=== PATIENT | female | born 1955 | race African-American/Black ===

== ENCOUNTER → 2016-12-25 | Outpatient (CLI) | payer BC ==
[~2016-12-25] MED LIST: AUGMENTIN 875875 MG PO; HYDROCHLOROTHIA25 M2 PO; HYDROCODON-ACE1 EAC7 PO; LISINOPRIL20 MG PO; NEURONTIN 300300 M1 PO; ZOCOR20 MG PO
== END ==
LOC: RAD 14:47
DX: Z12.31 Encounter for screening mammogram for malignant neoplasm of breast (principal); N63 Unspecified lump in breast; R05 Cough

== ENCOUNTER → 2016-12-29 | Outpatient (CLI) | payer BC | LOC: RAD 09:07 | DX: N63 Unspecified lump in breast (principal) ==

== ENCOUNTER 2018-04-13 00:17 | Inpatient (IN) | payer BC ==
[~2018-04-13] VITALS: Ht 167.6 cm; Wt 111.0 kg
[2018-04-13] VITALS (16 sets, daily range): BP systolic 89–154; BP diastolic 52–94
--- NOTE | ~2018-04-13 | EKG ---
[address] [place] [address] ELECTROCARDIOGRAM REPORT Name: ESPERANZASASHA Room #: 204-P ADM IN M.R.#: [id number] Admission: 04/13/18 Attend Phys: Chip Mccain MD Discharge: Date of : 55 Report #: [id number] THIS REPORT FOR: //name// [facility] Test Date: 2018-04-13 Test Time: 05:11:59 Pat Name: SASHA MATA Department: Room: 204 Gender: F Overnight Babysitter: BRITNI : 1955 Requested By: Margaret Rodriguez Order Number: [id number] MD: Jordi Woods Measurements Intervals [place] Rate: 101 P: MA: QRS: -2 QRSD: 114 T: 85 QT: 369 QTc: 479 Interpretive Statements Atrial fibrillation Ventricular premature complex Borderline repolarization abnormality Baseline wander in lead(s) V2 No previous ECG available for comparison Electronically Signed On 04-15-2018 8:22:50 CDT by Jordi Woods [email or web address] <ELECTRONICALLY SIGNED> By: Jordi Woods MD, [facility] 04/15/18 0822 0511 05 Jordi Woods MD, FACC /EPI
--- NOTE | ~2018-04-13 | 2DMMODE ---
[facility] [address] [place] [address] 2 D/M-MODE ECHOCARDIOGRAM Name: SASHA MATA Room #: 204-P ADM IN ..#: [id number] Admission: 04/13/18 Attend Phys: Agus Monk MD Discharge: Date of : 55 Date of Service: 04/13/181831 Report #: [id number] THIS REPORT FOR: //name// APPROVED REPORT Study performed: 04/13/2018 09:26:52 EXAM: Comprehensive 2D, Doppler, and color-flow Echocardiogram Patient Location: Bedside Room #: 204 Status: routine BSA: 2.16 HR: 72 bpm BP: 112/83 mmHg Rhythm: Atrial Fibrillation Other Information Study Quality: Adequate Technically limited study due to body habitus. Risk Factors: Cardiac Risk Factors: Hyperlipidemia, HTN Indications Congestive Heart Failure Murmur Atrial Fibrillation Dyspnea 2D Dimensions RVDd: 18.67 mm LVEF(%): 60.00 (>50%) IVSd: 10.54 (7-11mm) LVOT Diam: 19.00 (18-24mm) LVDd: 67.37 mm PWd: 11.06 (7-11mm) Ascending Ao: 27.88 (22-36mm) LVDs: 51.35 (25-40mm) Aortic Root: 29.50 mm LV Single Plane 4CH: 64.90 % LV Single Plane 2CH: 60.38 % Dupont's LVEF: 62.64 % Biplane EF: 62.8 % Volumes Left Atrial Volume (Systole) Single Plane 4CH: 111.86 mL Single Plane 2CH: 100.42 mL LA ESV Index: 56.00 mL/m2 [facility] [address] [place] [address] 2 D/M-MODE ECHOCARDIOGRAM Name: SASHA MATA Room #: 204-P [facility] IN [facility]#: [id number] Admission: 04/13/18 Attend Phys: Agus Monk MD Discharge: Date of : 55 Date of Service: 04/13/18 1832 Report #: [id number] Aortic Valve AoV Peak Abram.: 1.27 m/s AO Peak Gr.: 6.45 mmHg LVOT Max P.50 mmHg LVOT Max V: 1.06 m/s [place] Vmax: 2.25 cm2 Pulmonary Valve PV Peak Abram.: 0.95 m/s PV Peak Gr.: 3.64 mmHg Tricuspid Valve TR Peak Abram.: 2.95 m/s RAP Estimate: 10.00 mmHg TR Peak Gr.: 35.05 mmHg PA Pressure: 45.00 mmHg Left Ventricle Left ventricle is severely dilated. Borderline concentric left ventricular hypertrophy. The left ventricular systolic function is normal. The left ventricular ejection fraction is within the normal range. LVEF is 60-65%. This study is not technically sufficient to allow evaluation of the LV diastolic function due to atrial fibrillation. Right Ventricle Right ventricle is at the upper limits of normal. The right ventricular systolic function is normal. Atria Left atrium is severely dilated. Right atrium is moderately dilated. Aortic Valve The Aortic valve is sclerotic. Trace aortic regurgitation. Mitral Valve There is mitral annular calcification. Severe mitral regurgitation. No evidence of mitral valve stenosis. Tricuspid Valve The tricuspid valve is normal in structure. Moderate tricuspid regurgitation. Pulmonary artery pressure is 45 mmHg. Pulmonic Valve The pulmonary valve is normal in structure. Mild pulmonic regurgitation. Great Vessels [facility] [address] [place] [address] 2 D/M-MODE ECHOCARDIOGRAM Name: ESPERANZASASHA Room #: 204-P ADM IN M.R.#: [id number] Admission: 04/13/18 Attend Phys: Agus Monk MD Discharge: Date of : 55 Date of Service: 04/13/18 1832 Report #: [id number] The aortic root is normal in size. IVC is mildly dilated and collapses <50% with inspiration. Pulmonary artery is dilated at 3.0 cm. Pericardium There is no pericardial effusion. <Conclusion> Left ventricle is severely dilated. LVEF is 60-65%. Right ventricle is at the upper limits of normal. The right ventricular systolic function is normal. Left atrium is severely dilated. Right atrium is moderately dilated. The Aortic valve is sclerotic. Trace aortic regurgitation. There is mitral annular calcification. Severe mitral regurgitation. The tricuspid valve is normal in structure. Moderate tricuspid regurgitation. Pulmonary artery pressure is 45 mmHg. The pulmonary valve is normal in structure. Mild pulmonic regurgitation. Pulmonary artery is dilated at 3.0 cm. There is no pericardial effusion. <ELECTRONICALLY SIGNED> By: Matias Samuels MD 04/13/181831 31 31 Matias Samuels MD /INF
--- NOTE | ~2018-04-13 | EKG ---
[address] [address] ELECTROCARDIOGRAM REPORT Name: ESPERANZASASHA Room #: 204-P ADM IN M.R.#: [id number] Admission: 04/13/18 Attend Phys: Chip Mccain MD Discharge: Date of : 55 Report #: [id number] THIS REPORT FOR: //name// [facility] ED Test Date: 2018-04-13 Test Time: 00:28:26 Pat Name: SASHA MATA Department: Room: 204 P Gender: F Insurance Inspector: OLLIE : 1955 Requested By: Agus Monk Order Number: [id number] MD: Jordi Woods Measurements Intervals [place] Rate: 112 P: LA: QRS: -19 QRSD: 116 T: 84 QT: 353 QTc: 482 Interpretive Statements Atrial fibrillation Premature ventricular complexes Minimal ST depression, lateral leads No previous ECG available for comparison Electronically Signed On 04-15-2018 8:21:14 CDT by Jordi Woods [email or web address] <ELECTRONICALLY SIGNED> By: Jordi Woods MD, [facility] 04/15/18 0821 0028 Jordi Woods MD, FACC /EPI
[2018-04-13 00:48] LABS: ABSOLUTE NEUTROPHILS 5.8 thou/uL (1.4-8.2); EOSINOPHILS 2.8 % (0.0-3.0); HEMOGLOBIN 12.2 gm/dL (12.0-15.0); LYMPHOCYTES 28.5 % (24.0-44.0); MCH 29.4 pg (26.0-34.0); MCHC 33.1 g/dL (28.0-37.0); MCV 88.8 fL (80.0-100.0); MONOCYTES 9.5 % (1.0-8.0); POLYS 58.2 % (36.0-66.0); RBC 4.17 mil/uL (4.20-5.00); RDW 14.5 % (10.5-14.5); WBC 9.9 thou/uL (4.0-11.0)
[2018-04-13 00:55] LABS: ANION GAP 6 mmol/L (7-16); BUN 24 mg/dL (7-18); CALCIUM 9.4 mg/dL (8.5-10.1); CHLORIDE 106 mmol/L (98-107); CO2 27 mmol/L (21-32); CREATININE 1.2 mg/dL (0.6-1.0); GLUCOSE 158 mg/dL (74-106); POTASSIUM 3.1 mmol/L (3.5-5.1); SODIUM 139 mmol/L (136-145)
[2018-04-13 01:04] LABS: TROPONIN-I <0.06 ng/mL (<0.06)
[2018-04-13 01:27] LABS: LARGE PLATELETS SEVERAL; PLATELET COUNT 126 thou/uL (150-400)
[2018-04-13 03:53] LABS: APTT 26.4 Seconds (24.5-32.8); INR 1.1
[2018-04-14] VITALS (14 sets, daily range): BP systolic 90–135; BP diastolic 50–96
[2018-04-14 02:46] LABS: HEMATOCRIT 34.8 % (37.0-47.0); HEMOGLOBIN 11.6 gm/dL (12.0-15.0); MCH 29.2 pg (26.0-34.0); MCHC 33.2 g/dL (28.0-37.0); MCV 88.1 fL (80.0-100.0); RBC 3.96 mil/uL (4.20-5.00); RDW 14.5 % (10.5-14.5); WBC 8.5 thou/uL (4.0-11.0)
[2018-04-14 03:02] LABS: ALBUMIN 3.2 g/dL (3.4-5.0); CREATININE 1.2 mg/dL (0.6-1.0); PHOSPHORUS 4.4 mg/dL (2.5-4.9); TOTAL BILIRUBIN 0.7 mg/dL (<0.1-1.0)
[2018-04-14 03:06] LABS: POTASSIUM 2.8 mmol/L (3.5-5.1)
[2018-04-15 03:31] LABS: HEMATOCRIT 35.5 % (37.0-47.0); HEMOGLOBIN 11.7 gm/dL (12.0-15.0); MCH 29.2 pg (26.0-34.0); MCV 88.5 fL (80.0-100.0); RBC 4.02 mil/uL (4.20-5.00); RDW 14.7 % (10.5-14.5); WBC 9.1 thou/uL (4.0-11.0)
[2018-04-15 03:41] LABS: CALCIUM 9.1 mg/dL (8.5-10.1); CREATININE 1.2 mg/dL (0.6-1.0); POTASSIUM 3.4 mmol/L (3.5-5.1); TOTAL BILIRUBIN 0.9 mg/dL (<0.1-1.0); TOTAL PROTEIN 6.9 g/dL (6.4-8.2)
[2018-04-15 04:20] VITALS: BP 126/74
[2018-04-15 08:29] VITALS: BP 122/69
[2018-04-15 11:25] VITALS: BP 125/76
[2018-04-15 15:30] VITALS: BP 129/83
[2018-04-15 20:07] VITALS: BP 111/70
[2018-04-16 03:58] LABS: HEMATOCRIT 38.2 % (37.0-47.0); HEMOGLOBIN 12.7 gm/dL (12.0-15.0); MCH 29.3 pg (26.0-34.0); MCHC 33.1 g/dL (28.0-37.0); MCV 88.4 fL (80.0-100.0); RBC 4.33 mil/uL (4.20-5.00); RDW 14.2 % (10.5-14.5); WBC 9.8 thou/uL (4.0-11.0)
[2018-04-16 04:44] VITALS: BP 108/69
[2018-04-16 07:25] VITALS: BP 124/78
[2018-04-16 11:50] VITALS: BP 115/73
[2018-04-16] MEDS ORDERED: DIGOXIN250 MCG PO ×2 (13:29→15:06)
[2018-04-16] MEDS ORDERED: PRADAXA150 MG PO ×2 (13:29→15:06)
[2018-04-16] MEDS ORDERED: ASPIR 8181 MG PO ×2 (13:29→15:06)
[2018-04-16] MEDS ORDERED: LASIX 40 MG TAB40 M2 PO ×2 (13:29→15:06)
[2018-04-16] MEDS ORDERED: POTASSIUM20 PO ×2 (13:29→15:06)
[2018-04-16] MEDS ORDERED: DILTIAZEM 24HR180 M1 PO ×2 (13:30→15:06)
[2018-04-16 14:19] VITALS: BP 115/73
[2018-04-16 14:21] VITALS: BP 115/73
[2018-04-16] MEDS ORDERED: ZOCOR20 MG PO (15:06)
[2018-04-16 15:35] VITALS: BP 118/67
== END 2018-04-16 17:30 | disposition home or self-care (01) | DRG 292 ==
LOC: ER 00:17 → EROBS 01:41 → 2N 01:41
PROVIDERS: Emergency Medicine; Hospitalist
DX: I11.0 Hypertensive heart disease with heart failure (principal); N17.9 Acute kidney failure, unspecified; I48.91 Unspecified atrial fibrillation; I50.31 Acute diastolic (congestive) heart failure; E78.5 Hyperlipidemia, unspecified; E87.6 Hypokalemia; R10.9 Unspecified abdominal pain; I34.0 Nonrheumatic mitral (valve) insufficiency; Z87.891 Personal history of nicotine dependence; Z90.710 Acquired absence of both cervix and uterus; Z90.721 Acquired absence of ovaries, unilateral; Z79.899 Other long term (current) drug therapy
CPT/HCPCS: 10081